=== PATIENT | male | born 1990 | race African-American/Black ===

== ENCOUNTER 2024-11-14 20:19 | Emergency (ER) | payer OTHER ==
[~2024-11-14] VITALS: Ht 177.8 cm; Wt 85.0 kg
[2024-11-14] MEDS: MIDAZOLAM HCL 2 MG/2 ML VIAL IM ONE (20:52)
[2024-11-14] MEDS: SODIUM CHLORIDE 0.9% 1,000 ML IV ONE (21:21)
[2024-11-14] MEDS: DIPHENHYDRAMINE 50MG/ML VIAL IM ONE (21:21)
[2024-11-14] MEDS: HALOPERIDOL LACTATE 5MG/ML VIAL IM ONE (21:22)
[2024-11-14 21:32] LABS: BASOPHILS % 0.4 % (0.0-2.0); DIFFERENTIAL COMMENT 0; HEMATOCRIT. 38.6 % (42.0-52.0); HEMOGLOBIN. 13.1 g/dL (14.0-18.0); LYMPHOCYTES % 8.3 % (20.0-50.0); MEAN CORPUSCULAR HEMOGLOBIN 28.4 pg (28.0-32.0); MEAN CORPUSCULAR VOLUME 83.4 fL (80.0-94.0); MEAN PLATELET VOLUME 6.9 fl (7.4-10.4); MONOCYTES % 2.8 % (2.0-8.0); NEUTROPHILS % 88.5 % (40.0-76.0); PLATELET 314 x1000/uL (130-400); RED BLOOD CELL COUNT 4.62 mill/uL (4.7-6.1); RED CELL DISTRIBUTION WIDTH 15.7 % (11.6-14.6); WHITE BLOOD COUNT 7.7 x1000/uL (4.5-11.0)
[2024-11-14 21:38] LABS: CHLORIDE 108 mEq/L (98-107); POTASSIUM 3.5 mEq/L (3.5-5.1); SODIUM 142 mEq/L (136-145)
[2024-11-14 21:39] LABS: CALCIUM 10.2 mg/dL (8.7-10.4); CARBON DIOXIDE 26 mEq/L (21-32)
[2024-11-14 21:44] LABS: CREATININE 1.1 mg/dL (0.6-1.3); GLUCOSE 127 mg/dL (70-105); UREA NITROGEN BLOOD 16 mg/dL (9-23)
[2024-11-14 21:45] LABS: ETHANOL BLOOD < 10 mg/dL (<10)
[2024-11-14] MEDS: HALOPERIDOL LACTATE 5MG/ML VIAL IM NR (22:29)
[2024-11-14] MEDS: LORAZEPAM 2MG/ML UD SYRINGE IM NR (22:29)
[2024-11-14 23:09] LABS: *AMPHETAMINES SCREEN URINE PRESUMPTIVE POSITIVE (NEGATIVE); *BARBITURATES SCREEN URINE NEGATIVE (NEGATIVE); *BENZODIAZEPINES SCREEN URINE PRESUMPTIVE POSITIVE (NEGATIVE); *COCAINE SCREEN URINE NEGATIVE (NEGATIVE); CANNABINOID URINE SCREEN NEGATIVE (NEGATIVE); ECSTASY MDMA SCREEN URINE CONF.TEST INDICATED (NEGATIVE); METHADONE URINE SCREEN NEGATIVE (NEGATIVE); OPIATES URINE SCREEN NEGATIVE (NEGATIVE); PHENCYCLIDINE URINE SCREEN NEGATIVE (NEGATIVE)
[2024-11-15 03:26] VITALS: O2SAT 96
[2024-11-15 09:24] VITALS: BP 140/87; PULSE 100; RESP 19; TEMP 36.9; O2SAT 96
== END 2024-11-15 09:25 | disposition home or self-care (01) ==
LOC: ER 20:19
DX: Z00.00 Encounter for general adult medical examination without abnormal findings (principal); T65.91XA Toxic effect of unspecified substance, accidental (unintentional), initial encounter; F19.10 Other psychoactive substance abuse, uncomplicated; F31.9 Bipolar disorder, unspecified; Z59.00 Homelessness unspecified; Z79.899 Other long term (current) drug therapy; Y92.89 Other specified places as the place of occurrence of the external cause
CPT/HCPCS: 80305; 80048; 80307; 80329; 80320; 85025; 36415; 96360; 96372; 99291; J1200; J1630; J2060; J2250; J7030; Z7610; A4606; G0480